=== PATIENT | female | born 2000 | race Caucasian/White ===

== ENCOUNTER 2020-02-01 22:21 | Emergency (ER) | payer MEDICAID ==
[~2020-02-01] VITALS: Ht 160 cm; Wt 51.4 kg
[2020-02-01 22:29] VITALS: Ht 160 cm; Wt 51.4 kg
[2020-02-01] MEDS ORDERED: TIROSINT88 MCG PO (22:31)
[2020-02-01 23:18] VITALS: BP 117/76
[2020-02-01 23:22] LABS: BILIRUBIN NEGATIVE (NEGATIVE); KETONE LARGE mg/dL (NEGATIVE); NITRITE NEGATIVE (NEGATIVE); UROBILINOGEN NORMAL (NORMAL)
[2020-02-01 23:43] LABS: BASOPHILS 0.2 % (0-2); EOSINOPHILS 0.1 % (0-7); HEMOGLOBIN 13.5 g/dL (12-16); IMMATURE GRANULOCYTES 0.2 % (0-5); LYMPHOCYTES 18.9 % (15-50); MCH 32.9 pg (26.0-34.0); MCHC 34.6 g/dL (31.0-37.0); MCV 95.1 fL (80.0-100.0); MEAN PLATELET VOLUME 9.9 fL (7.4-10.4); MONOCYTES 3.5 % (2-11); NEUTROPHILS 77.1 % (40-80); PLATELET COUNT 280 10x3/uL (130-400); RDW 12.6 % (11.5-14.5); WBC 11.3 10x3/uL (4.8-10.8)
[2020-02-01 23:52] LABS: CALC OSMOLALITY 269 mosm/kg (275-300); CARBON DIOXIDE 21.4 mmol/L (21.0-32.0); CHLORIDE - SERUM 102 mmol/L (98-107); CREATININE - SERUM 0.7 mg/dL (0.6-1.3); POTASSIUM - SERUM 3.7 mmol/L (3.5-5.1); SODIUM 136 mmol/L (136-145); UREA NITROGEN 13 mg/dL (7-18); eGFR NON AFRICAN AMERICAN > 90 mL/min (90-120)
[2020-02-01 23:54] LABS: GLUCOSE 67 mg/dL (74-106)
[2020-02-01 23:58] LABS: ALKALINE PHOSPHATASE 34 U/L (30-120); ALT (SGPT) 20 U/L (10-68); BILIRUBIN - TOTAL 0.55 mg/dL (0.2-1.3); PROTEIN - SERUM 7.6 g/dL (6.4-8.2)
[2020-02-02] MEDS ORDERED: ZOFRAN4 MG PO (00:46)
[2020-02-02] MEDS ORDERED: REGLAN5 MG PO (00:46)
== END 2020-02-02 01:32 | disposition home or self-care (01) ==
LOC: D.ER 22:21
PROVIDERS: Family Medicine
DX: O21.0 Mild hyperemesis gravidarum (principal)

== ENCOUNTER 2020-08-09 19:49 | Inpatient (IN) | payer MEDICAID ==
[~2020-08-09] VITALS: Ht 160 cm; Wt 62.8 kg
[~2020-08-09 19:49] MED LIST: REGLAN5 MG PO; TIROSINT88 MCG PO; ZOFRAN4 MG PO
[2020-08-09 20:48] VITALS: BP 124/81; Ht 160 cm; Wt 62.8 kg
[2020-08-09 21:39] LABS: HEMOGLOBIN 12.7 g/dL (12-16); MCH 31.2 pg (26.0-34.0); MCHC 33.4 g/dL (31.0-37.0); MCV 93.4 fL (80.0-100.0); MEAN PLATELET VOLUME 12.1 fL (7.4-10.4); RBC 4.07 10x6/uL (4.00-5.40); RDW 13.1 % (11.5-14.5); WBC 11.2 10x3/uL (4.8-10.8)
[2020-08-09 21:40] LABS: BILIRUBIN NEGATIVE (NEGATIVE); KETONE MODERATE mg/dL (NEGATIVE); NITRITE NEGATIVE (NEGATIVE); UROBILINOGEN NORMAL mg/dL (< 2)
[2020-08-09 21:43] LABS: UDS - AMPHET NEGATIVE QUAL (NEGATIVE); UDS - BARB NEGATIVE QUAL (NEGATIVE); UDS - BENZO NEGATIVE QUAL (NEGATIVE); UDS - COCAINE NEGATIVE QUAL (NEGATIVE); UDS - OPIATE NEGATIVE QUAL (NEGATIVE); UDS - PCP NEGATIVE QUAL (NEGATIVE); UDS - THC NEGATIVE QUAL (NEGATIVE)
--- NOTE | 2020-08-10 17:00 | NUR ---
PT PATIENTS TRANSPORTER LIGHT REQUESTING ASSISTANCE TO BATHROOM STATING HER LEG DOESN'T FEEL COMPLETELY AWAKE. TO ROOM; STAND BY ASSIST FOR PT SHE AMBULATEDS TO BATHROOM. PT VOIDED WITHOUT DIFFICULTY AND WALKED BACK TO BED WITHOUT ASSISANCE.
--- NOTE | 2020-08-10 17:22 | NUR ---
PT OOB AND AMB TO BR. VOIDS FREELY. PERICARE DONE PER PT. PAD CHANGED. PT TRANSFERED VIA AMBULATORY WITH Gianni NOBLES RN TO ROOM 1221.
--- NOTE | 2020-08-10 17:28 | NUR ---
RECEIVED PT AMBULATORY FROM L&D ACCOMPANIED BY SIGNIFICANT OTHER AND L&D STAFF. REPORT RECEIVED FROM Gianni NOBLES RN.
[2020-08-10 17:47] VITALS: BP 124/78
--- NOTE | 2020-08-10 17:48 | NUR ---
PT SITTING UP IN BED WITH BABY IN CRIB AT BEDSIDE. VS TAKEN AND STABLE. NO NEEDS VOICED AT THIS TIME.
--- NOTE | 2020-08-10 19:00 | NUR ---
PT REPORT WAS GIVEN BY REGGIE DOUGLAS
[2020-08-10 20:00] VITALS: BP 82/52
--- NOTE | 2020-08-10 20:20 | NUR ---
ASSESSMENT COMPLETED. PT IS IN BED HOLDING THE BABY. HER MOTHER IS IN THE ROOM WITH HER. HEART SOUNDS WNL AND LUNGS SOUND CLEAR. SKIN IS WARM AND DRY. NO LACERATIONS OR TEARS. SHE HAS AN IV IN THE LEFT FOREARM ON THE LEFT THAT IS SALINE LOCKED. PT IS UP VOIDING. FUNDUS IS FIRM BLEEDING MODERATE. PT HAS NO C/O AND NO NEEDS AT THIS TIME
--- NOTE | 2020-08-10 22:00 | NUR ---
IN PT ROOM TO GIVE TYLENOL. SHE HAS NO C/O AND NO NEEDS. SHE IS GETTING UP TO THE BR. SHE HAS NOT WALKED THE HALLS YET. SHE IS VERY QUIET.
--- NOTE | 2020-08-11 00:50 | NUR ---
PT STILL HAS CRAMPS. IT IS NOT TIME FOR HER TYLENOL. I GAVE HER 10 MG OF TORADOL PER ORDER. PT IS TRYING TO BREAST FEED THE BABY.
--- NOTE | 2020-08-11 02:00 | NUR ---
PT IS TRYING TO BREAST FEED HER BABY. I TOOK HER TYLENOL TO HER THAT WAS DUE. SHE HAS NO C/O NOW
--- NOTE | 2020-08-11 02:30 | NUR ---
BABY TAKEN TO THE NURSERY. PT IS NOW RESTING QUIETLY IN HER BED.
--- NOTE | 2020-08-11 05:26 | NUR ---
BABY IS BACK IN PT ROOM. NO NEW C/O.
[2020-08-11 07:16] LABS: RAPID PLASMA REAGIN Non Reactive (Non Reactive)
--- NOTE | 2020-08-11 08:08 | NUR ---
AM ASSESSMENT CHARTED TO FLOWSHEET. RATES PAIN AT 0/10, FUNDUS FIRM AT U/U AND PT DENIES CLOTS WITH VOIDS. SALINE LOCK D/C REMOVED WITH CATH INTACT. INFANT IN ROOM BEING HELD BY PT MOTHER, PT IS SITTING UP IN BED TO EAT REGULAR DIET. DENIES NEEDS AT THIS TIME.
--- NOTE | 2020-08-11 11:19 | NUR ---
PT CONTIUE TO DENY PAIN, HAS NO NEEDS AT THIS TIME. CALL LIGHT IN REACH.
--- NOTE | 2020-08-11 13:10 | NUR ---
PT SITTING UP IN THE BED, EATING LUNCH AND WATCHING TV. PT REQUESTS TO HAVE SL REMOVED. IV DC'D WITH CATH INTACT. PT THOMPSON WELL. PT DENIES ALL OTHER NEEDS. SRUP X 2, CALL LIGHT AND PHONE WITHIN REACH.
--- NOTE | 2020-08-11 14:28 | NUR ---
RATES PAIN AT 3/10, TYLENOL GIVEN SCANNED TO EMAR. PT IS DRESSED AND WALKING AROUND ROOM, DENIES ANY OTHER NEEDS AT THIS TIME.
--- NOTE | 2020-08-11 15:30 | NUR ---
VERBAL AND WRITTEN DISCHARGE INSTRUCTIONS GONE OVER WITHOUT QUESTIONS OR CONCERNS. WILL CALL WHEN INFANT DISCHARGE COMPLETED
--- NOTE | 2020-08-11 16:31 | NUR ---
PT TAKEN OUT BY WHEELCHAIR WITH SECURED INTO CARRIER. HOME BY PRIVATE CAR WITH FAMILY MEMBER.
== END 2020-08-11 16:32 | disposition home or self-care (01) | DRG 807 ==
LOC: D.LD 19:49 → D.WS 08-10 17:23
PROVIDERS: ADMIT Obstetrics & Gynecology; ATTEND Obstetrics & Gynecology
PROC: 10E0XZZ Delivery of Products of Conception, External Approach (ICD-10-PCS; principal; 2020-08-10)
PROC: 0HQ9XZZ Repair Perineum Skin, External Approach (ICD-10-PCS; 2020-08-10)
PROC: 3E033VJ Introduction of Other Hormone into Peripheral Vein, Percutaneous Approach (ICD-10-PCS; 2020-08-10)
DX: O70.0 First degree perineal laceration during delivery (principal); Z37.0 Single live birth; Z3A.40 40 weeks gestation of pregnancy